=== PATIENT | female | born 1965 | race Caucasian/White ===

== ENCOUNTER 2017-01-22 07:32 | Emergency (ER) | payer BC ==
--- NOTE | 2017-01-22 08:10 | EDM.PDOC ---
ED HPI LOWER BACK PAIN/INJURY - General Chief Complaint: Back Pain or Injury Stated Complaint: BACK/ABD PAIN Time Seen by Provider: 01/22/17 08:05 Source: Reports: Patient, Family History Limitations: Reports: No limitations - History of Present Illness INITIAL COMMENTS - FREE TEXT/NARRATIVE: pt works at [employer] and she does do a fair amount of lifting, She has not fallen or injured her self that she is aware of. She also has diffuse abdomanal pain. her bms are normal and she has not been vomiting. She has no definite urine symptoms. 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 Has not followed through. - Infectious Disease History Infectious Disease History: Reports: Chicken pox Social & Family History - Tobacco Use Smoking Status *Q: Current Every Day Smoker Years of Tobacco use: 20 Packs/Tins Daily: 0.5 Used Tobacco, but Quit: No Second Hand Smoke Exposure: Yes - Caffeine Use Caffeine Use: Reports: Coffee, Soda - Recreational Drug Use Recreational Drug Use: No ED ROS GENERAL - Review of Systems Review Of Systems: See Below Constitutional: Reports: no symptoms HEENT: Reports: No symptoms Respiratory: Reports: No Symptoms Cardiovascular: Reports: No symptoms Endocrine: Reports: no symptoms GI/Abdominal: Reports: Other (pt has generalized tenderness) : Reports: no symptoms Musculoskeletal: Reports: other ( severe pain in the mid lumbar area. ) Skin: Reports: no symptoms Neurological: Reports: No Symptoms ED EXAM,LOWER BACK PAIN/INJURY - Physical Exam Exam: See Below Text/Narrative:: pt arrived with low back pain and pain the epigastric area. The area in the back which is painful is uppr lumbar and and lower thoracic. She is tender in the epigastric area. Exam Limited By: No limitations General Appearance: alert, moderate distress Ears: normal TMs Nose: normal inspection Throat/Mouth: Normal inspection Head: atraumatic Neck: normal inspection Respiratory/Chest: no respiratory distress Cardiovascular: regular rate, rhythm GI/Abdominal: other (Pt is remarkably tender in the epigastric area. ) Rectal (Female) Exam: Deferred Back Exam: other ( Pt is tender to palpate in the lower back with definite muscle spasm present. ) Extremities: normal inspection Neurological: alert, oriented x 3 Psychiatric: anxious Course - Vital Signs Last Recorded V/S: Last Vital Signs Temp 36.4 C 01/22/17 10:33 Pulse 79 01/22/17 10:33 Resp 16 01/22/17 10:33 BP 107/65 01/22/17 10:33 Pulse Ox 96 01/22/17 10:33 - Orders/Labs/Meds Orders: Active Orders 24 hr Category Date Time Status Abdomen Pelvis w Cont [CT] Stat Exams 01/22/17 09:07 Taken Lumbar Spine Min 4V [CR] Stat Exams 01/22/17 08:03 Taken Iopamidol [Isovue-300 (61%)] Med 01/22/17 09:34 Active 129 ml IV . DIRECTED PRN Sodium Chloride 0.9% [Normal Saline] 79 ml Med 01/22/17 09:45 Active IV ASDIRECTED Sodium Chloride 0.9% [Saline Flush] Med 01/22/17 09:34 Active 10 ml FLUSH ONETIME PRN Medication Orders Sodium Chloride (Normal Saline) 79 mls @ 3.5 mls/sec IV ASDIRECTED ROYA Stop: 01/22/17 23:00 Last Admin: 01/22/17 09:48 Dose: 3.5 mls/sec Iopamidol (Isovue-300 (61%)) 129 ml IV . DIRECTED PRN PRN Reason: RADIOLOGY EXAM Stop: 01/23/17 09:35 Last Admin: 01/22/17 09:48 Dose: 129 ml Sodium Chloride (Saline Flush) 10 ml FLUSH ONETIME PRN PRN Reason: per radiology protocol Stop: 01/22/17 23:00 Last Admin: 01/22/17 09:46 Dose: 10 ml Labs: Laboratory Tests 04/30/17 04/30/17 04/30/17 Range/Units 08:09 08:09 08:09 WBC 8.0 (4.5-11.0) K/uL RBC 4.57 (3.30-5.50) M/uL Hgb 14.4 (12.0-15.0) g/dL Hct 41.9 (36.0-48.0) % MCV 92 (80-98) fL MCH 32 H (27-31) pg MCHC 34 (32-36) % Plt Count 331 (150-400) K/uL Neut % (Auto) 50 (36-66) % Lymph % (Auto) 37 (24-44) % [place] % (Auto) 10 H (2-6) % Eos % (Auto) 3 (2-4) % Baso % (Auto) 0 (0-1) % Sodium 139 L (140-148) mmol/L Potassium 4.2 (3.6-5.2) mmol/L Chloride 105 (100-108) mmol/L Carbon Dioxide 27 (21-32) mmol/L Anion Gap 11.2 (5.0-14.0) mmol/L BUN 16 (7-18) mg/dL Creatinine 0.8 (0.6-1.0) mg/dL Est Cr Clr Drug Dosing 71.84 mL/min Estimated GFR (MDRD) > 60 (>60) Glucose 106 (74-106) mg/dL Calcium 8.7 (8.5-10.1) mg/dL Total Bilirubin 0.3 (0.2-1.0) mg/dL AST 40 H (15-37) U/L ALT 63 (12-78) U/L Alkaline Phosphatase 82 (46-116) U/L C-Reactive Protein 2.68 H (0.0-0.3) mg/dL Total Protein 7.5 (6.4-8.2) g/dL Albumin 3.7 (3.4-5.0) g/dL Globulin 3.8 H (2.3-3.5) g/dL Albumin/Globulin Ratio 1.0 L (1.2-2.2) Free T4 (0.76-1.46) ng/dL Free T3 (2.18-3.98) pg/dL TSH, Ultra Sensitive 20.027 H (0.358-3.740) uIU/mL Urine Color Urine Appearance Urine pH (4.5-8.0) Ur Specific [place] (1.008-1.030) Urine Protein (NEGATIVE) mg/dL Urine Glucose (UA) (NEGATIVE) mg/dL Urine Ketones (NEGATIVE) mg/dL Urine Occult Blood (NEGATIVE) Urine Nitrite (NEGATIVE) Urine Bilirubin (NEGATIVE) Urine Urobilinogen (NORMAL) mg/dL Ur Leukocyte Esterase (NEGATIVE) Urine RBC (0-5) Urine WBC (0-5) Ur Epithelial Cells Amorphous Sediment Urine Bacteria Urine Mucus 01/22/17 01/22/17 Range/Units 08:10 09:49 WBC (4.5-11.0) K/uL RBC (3.30-5.50) M/uL Hgb (12.0-15.0) g/dL Hct (36.0-48.0) % MCV (80-98) fL MCH (27-31) pg MCHC (32-36) % Plt Count (150-400) K/uL Neut % (Auto) (36-66) % Lymph % (Auto) (24-44) % [place] % (Auto) (2-6) % Eos % (Auto) (2-4) % Baso % (Auto) (0-1) % Sodium (140-148) mmol/L Potassium (3.6-5.2) mmol/L Chloride (100-108) mmol/L Carbon Dioxide (21-32) mmol/L Anion Gap (5.0-14.0) mmol/L BUN (7-18) mg/dL Creatinine (0.6-1.0) mg/dL Est Cr Clr Drug Dosing mL/min Estimated GFR (MDRD) (>60) Glucose (74-106) mg/dL Calcium (8.5-10.1) mg/dL Total Bilirubin (0.2-1.0) mg/dL AST (15-37) U/L ALT (12-78) U/L Alkaline Phosphatase (46-116) U/L C-Reactive Protein (0.0-0.3) mg/dL Total Protein (6.4-8.2) g/dL Albumin (3.4-5.0) g/dL Globulin (2.3-3.5) g/dL Albumin/Globulin Ratio (1.2-2.2) Free T4 0.87 (0.76-1.46) ng/dL Free T3 2.66 (2.18-3.98) pg/dL TSH, Ultra Sensitive (0.358-3.740) uIU/mL Urine Color Yellow Urine Appearance Cloudy Urine pH 5.0 (4.5-8.0) Ur Specific [place] 1.015 (1.008-1.030) Urine Protein Negative (NEGATIVE) mg/dL Urine Glucose (UA) Normal (NEGATIVE) mg/dL Urine Ketones Negative (NEGATIVE) mg/dL Urine Occult Blood Moderate (NEGATIVE) Urine Nitrite Negative (NEGATIVE) Urine Bilirubin Negative (NEGATIVE) Urine Urobilinogen Normal (NORMAL) mg/dL Ur Leukocyte Esterase Negative (NEGATIVE) Urine RBC 0-5 (0-5) Urine WBC 0-5 (0-5) Ur Epithelial Cells Moderate Amorphous Sediment Not seen Urine Bacteria Moderate Urine Mucus Moderate Meds: Medications Generic Name Dose Route Start Last Admin Trade Name Freq PRN Reason Stop Dose Admin Sodium Chloride 79 mls @ 3.5 mls/sec 01/22/17 09:45 01/22/17 09:48 Normal Saline IV 01/22/17 23:00 3.5 mls/sec ASDIRECTED ROYA Administration Iopamidol 129 ml 01/22/17 09:34 01/22/17 09:48 Isovue-300 (61%) IV 01/23/17 09:35 129 ml . DIRECTED PRN Administration RADIOLOGY EXAM Sodium Chloride 10 ml 01/22/17 09:34 01/22/17 09:46 Saline Flush FLUSH 01/22/17 23:00 10 ml ONETIME PRN Administration per radiology protocol - Re-Assessments/Exams Free Text/Narrative Re-Assessment/Exam: 01/22/17 10:39 Back xrays reveal some degenerative changes . A cat scan of abdoman shows a moderately dilated superior mesenteric artery with stranding around it. This would have the apperance of a possible vasculitis of the artery. Pt has had abdomanal pain and back pain. Some of the back pain is clearly muscle. She is not vomiting. She has a mildly elevated crp at 2.68. 01/22/17 11:18 01/22/17 11:21 01/22/17 11:21 These findings were discussed with Dr Durham and she will admit her directly to med surg floor for further work up. Departure - Departure Time of Disposition: 11:22 Disposition: DC/Tfer to Acute Hospital 02 Condition: fair Clinical Impression: Superior mesenteric artery aneurysm, Vasculitis, Degenerative arthritis of lumbar spine, Severe hypothyroidism Forms: ED Department Discharge Care Plan Goals: transfer to [facility]. - My Orders Last 24 Hours: My Active Orders 01/22/17 08:03 Lumbar Spine Min 4V [CR] Stat 01/22/17 09:07 Abdomen Pelvis w Cont [CT] Stat 01/22/17 09:34 Iopamidol [Isovue-300 (61%)] 129 ml IV . DIRECTED PRN Sodium Chloride 0.9% [Saline Flush] 10 ml FLUSH ONETIME PRN 01/22/17 09:45 Sodium Chloride 0.9% [Normal Saline] 79 ml IV ASDIRECTED - Assessment/Plan Last 24 Hours: My Active Orders 01/22/17 08:03 Lumbar Spine Min 4V [CR] Stat 01/22/17 09:07 Abdomen Pelvis w Cont [CT] Stat 01/22/17 09:34 Iopamidol [Isovue-300 (61%)] 129 ml IV . DIRECTED PRN Sodium Chloride 0.9% [Saline Flush] 10 ml FLUSH ONETIME PRN 01/22/17 09:45 Sodium Chloride 0.9% [Normal Saline] 79 ml IV ASDIRECTED
[2017-01-22] MEDS ORDERED: Sodium Chloride 0.9% 10 ML Syringe FLUSH PRN (09:34)
[2017-01-22] MEDS ORDERED: Iopamidol 612 MG/ML 150 ML Bottle IV PRN (09:34)
[2017-01-22 11:33] VITALS: BP 112/69
--- NOTE | 2017-01-23 09:50 | CR ---
Lumbar Spine Min 4V HISTORY: Back pain COMPARISON: None FINDINGS: Mild degenerative change. Moderate spurring off the anterior superior margin of the L4 shantal tebral body. No acute fracture or subluxation seen.
== END 2017-01-22 11:45 ==
LOC: JP.ED 07:32
DX: I72.8 Aneurysm of other specified arteries (principal); I77.6 Arteritis, unspecified; M47.816 Spondylosis without myelopathy or radiculopathy, lumbar region; E03.9 Hypothyroidism, unspecified; F17.210 Nicotine dependence, cigarettes, uncomplicated
CPT/HCPCS: 36415; 72110; 74177; 80053; 81001; 84439; 84443; 84481; 85025; 86140; 99285; J7030; J7050

== ENCOUNTER 2017-09-22 21:15 | Emergency (ER) | payer BC ==
[2017-09-22] MEDS ORDERED: Ondansetron 4 MG/2 ML SDV IVPUSH ONE (21:57)
[2017-09-22] MEDS ORDERED: Sodium Chloride 0.9% 1,000 ML IV SCH (22:00)
[2017-09-22] MEDS ORDERED: Sodium Chloride 0.9% 10 ML Syringe FLUSH PRN (22:27)
[2017-09-22] MEDS ORDERED: Sodium Chloride 0.9% 80 ML IV SCH (22:30)
[2017-09-22] MEDS ORDERED: Iopamidol 612 MG/ML 150 ML Bottle IV SCH (22:30)
--- NOTE | 2017-09-22 22:52 | EDM.PDOC ---
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 Had sharp cramping pain all across her upper abdomen. She has a history of superior mesenteric artery aneurysm in the small intestine , was told to go immediately to ER if she develops any abdominal pain. surgery: 2016; lap carolyn, umbilical hernia repair. currently being treated for a sinus infection with Keflex, has been taking medication for one week. Onset: Sudden Duration: Hour(s): Location: Reports: Abdomen Quality: Reports: Sharp, Stabbing Severity: Moderate Improves with: Reports: None Worsens with: Reports: None Context: Reports: Other (illness) Associated Symptoms: Reports: Loss of Appetite, Nausea/Vomiting - Related Data Allergies Allergy/AdvReac Type Severity Reaction Status Date / Time No Known Allergies Allergy Verified 01/22/17 07:46 Home Meds: Home Meds Cyclobenzaprine [Flexeril] 10 mg PO TID PRN 01/22/17 [History] Clopidogrel Bisulfate [Clopidogrel] 09/22/17 [History] Levothyroxine Sodium [Levo-T] 09/22/17 [History] atorvaSTATin Calcium [Atorvastatin Calcium] 09/22/17 [History] Past Medical History HEENT History: Reports: 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 Has not followed through. - Infectious Disease History Infectious Disease History: Reports: Chicken Pox - Past Surgical History GI Surgical History: Reports: Small Bowel Social & Family History - Tobacco Use Smoking Status *Q: Current Every Day Smoker Years of Tobacco use: 30 Packs/Tins Daily: 0.2 Used Tobacco, but Quit: No Second Hand Smoke Exposure: Yes - Caffeine Use Caffeine Use: Reports: Coffee, Soda - Recreational Drug Use Recreational Drug Use: No - Living Situation & Occupation Living situation: Reports: Occupation: Employed (lives with , employed by [employer], has 4 children) ED ROS GENERAL - Review of Systems Review Of Systems: See Below Constitutional: Reports: Chills, Malaise, Decreased Appetite HEENT: Reports: No Symptoms Respiratory: Reports: No Symptoms Cardiovascular: Reports: No Symptoms Endocrine: Reports: No Symptoms GI/Abdominal: Reports: Abdominal Pain (across upper abdomen.), Flatus, Nausea, Vomiting : Reports: No Symptoms Musculoskeletal: Reports: No Symptoms Skin: Reports: No Symptoms Neurological: Reports: No Symptoms Psychiatric: Reports: No Symptoms Hematologic/Lymphatic: Reports: No Symptoms Immunologic: Reports: No Symptoms ED EXAM, GI/ABD - Physical Exam Exam: See Below Exam Limited By: No Limitations General Appearance: Alert, WD/WN, Mild Distress Eyes: Bilateral: Normal Appearance, EOMI Ears: Normal External Exam, Normal Canal, Hearing Grossly Normal, Normal TMs Nose: Normal Inspection, Normal Mucosa, No Blood Throat/Mouth: Normal Inspection, Normal Lips, Normal Teeth, Normal Gums, Normal Oropharynx, Normal Voice, No Airway Compromise Head: Atraumatic, Normocephalic Neck: Normal Inspection, Supple, Non-Tender, Full Range of Motion Respiratory/Chest: No Respiratory Distress, Lungs Clear, Normal Breath Sounds, No Accessory Muscle Use, Chest Non-Tender Cardiovascular: Regular Rate, Rhythm, No Edema, No Murmur GI/Abdominal Exam: Soft, No Distention, No Abnormal Bruit, Tender, Abnormal Bowel Sounds (hypoactive), Other (mild tenderness to upper abdomen with palpation.) (Female) Exam: Deferred Rectal (Female) Exam: Deferred Back Exam: Normal Inspection, Full Range of Motion Extremities: Normal Inspection, Normal Range of Motion, Non-Tender, No Pedal Edema, Normal Capillary Refill Neurological: Alert, Oriented, Normal Reflexes, No Motor/Sensory Deficits Psychiatric: Normal Affect, Normal Mood Skin Exam: Warm, Dry, Intact, Normal Color, No Rash Lymphatic: No Adenopathy Course - Vital Signs Last Recorded V/S: Last Vital Signs Temp 35.7 C 09/22/17 21:35 Pulse 94 09/22/17 21:35 Resp 16 09/22/17 21:35 BP 120/77 09/22/17 21:35 Pulse Ox 94 L 09/22/17 21:35 - Orders/Labs/Meds Orders: Active Orders 24 hr Category Date Time Status Abdomen Pelvis w Cont [CT] Stat Exams 09/22/17 22:00 Taken Iopamidol [Isovue-300 (61%)] Med 09/22/17 22:30 Active 128 ml IV . DIRECTED Sodium Chloride 0.9% [Normal Saline] 1,000 ml Med 09/22/17 22:00 Active IV ASDIRECTED Sodium Chloride 0.9% [Normal Saline] 80 ml Med 09/22/17 22:30 Active IV ASDIRECTED Sodium Chloride 0.9% [Saline Flush] Med 09/22/17 22:27 Active 10 ml FLUSH ASDIRECTED PRN Medication Orders Sodium Chloride (Normal Saline) 1,000 mls @ 999 mls/hr IV ASDIRECTED ROYA Last Admin: 09/22/17 22:15 Dose: 999 mls/hr Sodium Chloride (Normal Saline) 80 mls @ 3 mls/sec IV ASDIRECTED ROYA Last Admin: 09/22/17 22:40 Dose: 3 mls/sec Iopamidol (Isovue-300 (61%)) 128 ml IV . DIRECTED ROYA Last Admin: 09/22/17 22:40 Dose: 128 ml Sodium Chloride (Saline Flush) 10 ml FLUSH ASDIRECTED PRN PRN Reason: Keep Vein Open Last Admin: 09/22/17 22:40 Dose: 10 ml Labs: Laboratory Tests 09/22/17 09/22/17 Range/Units 22:05 22:05 WBC 10.1 (4.5-11.0) K/uL RBC 4.58 (3.30-5.50) M/uL Hgb 14.5 (12.0-15.0) g/dL Hct 42.1 (36.0-48.0) % MCV 92 (80-98) fL MCH 32 H (27-31) pg MCHC 34 (32-36) % Plt Count 343 (150-400) K/uL Neut % (Auto) 82 H (36-66) % Lymph % (Auto) 9 L (24-44) % [place] % (Auto) 7 H (2-6) % Eos % (Auto) 2 (2-4) % Baso % (Auto) 0 (0-1) % Sodium 141 (140-148) mmol/L Potassium 3.5 L (3.6-5.2) mmol/L Chloride 103 (100-108) mmol/L Carbon Dioxide 28 (21-32) mmol/L Anion Gap 13.5 (5.0-14.0) mmol/L BUN 22 H (7-18) mg/dL Creatinine 0.7 (0.6-1.0) mg/dL Est Cr Clr Drug Dosing 82.10 mL/min Estimated GFR (MDRD) > 60 (>60) Glucose 120 H (74-106) mg/dL Calcium 8.5 (8.5-10.1) mg/dL TSH, Ultra Sensitive 4.831 H (0.358-3.740) uIU/mL Meds: Medications Generic Name Dose Route Start Last Admin Trade Name Freq PRN Reason Stop Dose Admin Sodium Chloride 1,000 mls @ 999 mls/hr 09/22/17 22:00 09/22/17 22:15 Normal Saline IV 999 mls/hr ASDIRECTED ROYA Administration Sodium Chloride 80 mls @ 3 mls/sec 09/22/17 22:30 09/22/17 22:40 Normal Saline IV 3 mls/sec ASDIRECTED ROYA Administration Iopamidol 128 ml 09/22/17 22:30 09/22/17 22:40 Isovue-300 (61%) IV 128 ml . DIRECTED ROYA Administration Sodium Chloride 10 ml 09/22/17 22:27 09/22/17 22:40 Saline Flush FLUSH 10 ml ASDIRECTED PRN Administration Keep Vein Open Discontinued Medications Generic Name Dose Route Start Last Admin Trade Name Freq PRN Reason Stop Dose Admin Ondansetron HCl 4 mg 09/22/17 21:57 09/22/17 22:15 Zofran IVPUSH 09/22/17 21:58 4 mg ONETIME ONE Administration - Re-Assessments/Exams Free Text/Narrative Re-Assessment/Exam: 09/22/17 22:56 discussed with MrJuventino and Mrs. Espinosa, will give one liter of IV fluids, IV Zofran 4mg, for comfort labs; CBC, BMP, TSH (last TSH was >20), influenza A&B Imaging; CT abdomin-pelvis with contrast to rule out any acute abdominal both are in agreement. will await results. 09/22/17 23:31 CT report; Aneurysmal dilatation of the superior mesenteric artery is unchanged. 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 The previously noted inflammatory or edematous changes about the superior mesenteric arteries have resolved. discussed with Mrs. Espinosa; will consult with [facility] for further direction of care. patient reports feeling better, abdominal pain resolved with IV fluids. 09/22/17 23:53 -consulted with Dr. Luo; He is familiar with Mrs. Espinosa's case, last office visit 09-04-2017. He recommends treatment for gastroenteritis. Advise Mrs. Espinosa to return to ER if develops abdominal pain in mid to upper abdomin, that does not resolve. will need to be recheck, she can follow up with her Primary Care Provider as indicated. -discussed recommendations for care with Mrs. Espinosa, she is in agreement. w -will discharge to home with pain control prn and anti-emetics. Departure - Departure Time of Disposition: 00:03 Disposition: Home, Self-Care 01 Condition: Good Clinical Impression: Gastroenteritis - Discharge Information Referrals: PCP,None [Primary Care Provider] - Forms: ED Department Discharge Care Plan Goals: Gastroenteritis hx of superior mesenteric artery aneurysm. -Percocet one every 4 to 6 hours as needed for acute pain -may take Tylenol or Motrin for less acute pain -Zofran 4 mg ODT every 8 hours as needed for nausea diet; clear liquids advance as tolerated activity; rest meds; take regular medication as prescribed Return to ER for abdominal pain that does not resolve with medications or rest or has any concerns. - Problem List & Annotations (1) Superior mesenteric artery aneurysm SNOMED Code(s): 80534362 Code(s): I72.8 - ANEURYSM OF OTHER SPECIFIED ARTERIES Status: Acute Priority: Low Current Visit: No (2) Gastroenteritis SNOMED Code(s): 69553383 Code(s): K52.9 - NONINFECTIVE GASTROENTERITIS AND COLITIS, UNSPECIFIED Status: Acute Priority: High Current Visit: Yes - Problem List Review Problem List Initiated/Reviewed/Updated: Yes - My Orders Last 24 Hours: My Active Orders 09/22/17 22:00 Abdomen Pelvis w Cont [CT] Stat Sodium Chloride 0.9% [Normal Saline] 1,000 ml IV ASDIRECTED 09/22/17 22:27 Sodium Chloride 0.9% [Saline Flush] 10 ml FLUSH ASDIRECTED PRN 09/22/17 22:30 Iopamidol [Isovue-300 (61%)] 128 ml IV . DIRECTED Sodium Chloride 0.9% [Normal Saline] 80 ml IV ASDIRECTED - Assessment/Plan Last 24 Hours: My Active Orders 09/22/17 22:00 Abdomen Pelvis w Cont [CT] Stat Sodium Chloride 0.9% [Normal Saline] 1,000 ml IV ASDIRECTED 09/22/17 22:27 Sodium Chloride 0.9% [Saline Flush] 10 ml FLUSH ASDIRECTED PRN 09/22/17 22:30 Iopamidol [Isovue-300 (61%)] 128 ml IV . DIRECTED Sodium Chloride 0.9% [Normal Saline] 80 ml IV ASDIRECTED Plan: Gastroenteritis hx of superior mesenteric artery aneurysm. -Percocet one every 4 to 6 hours as needed for acute pain -may take Tylenol or Motrin for less acute pain -Zofran 4 mg ODT every 8 hours as needed for nausea diet; clear liquids advance as tolerated activity; rest meds; take regular medication as prescribed Return to ER for abdominal pain that does not resolve with medications or rest or has any concerns.
[2017-09-23] VITALS: BP 101/67
== END 2017-09-23 00:12 | disposition home or self-care (01) ==
LOC: JP.ED 21:15
DX: K52.9 Noninfective gastroenteritis and colitis, unspecified (principal); I72.8 Aneurysm of other specified arteries; F17.210 Nicotine dependence, cigarettes, uncomplicated
CPT/HCPCS: 36415; 74177; 80048; 84443; 85025; 87804; 96361; 96374; 99284; J2405; J7030; J7040; J7050